=== PATIENT | female | born 1980 | race Caucasian/White ===

== ENCOUNTER → 2020-12-28 | Outpatient (CLI) | payer BC ==
[2020-12-28 10:49] LABS: Appearance,Urine Cloudy (Clear); Bacteria,Urine Rare /hpf; Bilirubin,Urine Negative (Negative); Blood,Urine Negative (Negative); Color,Urine Yellow; Glucose,Urine (UA) Negative (Negative); Ketones,Urine Negative (Negative); Leukocyte Esterase,Urine Small (Negative); Mucus,Urine Moderate /hpf; Nitrite,Urine Negative (Negative); Protein,Urine Trace (Negative); RBC,Urine 1 /hpf (0-5); Specific Gravity,Urine 1.024 (1.001-1.035); Squamous Epithelial Cell,Urine 9 /hpf (0-4); Urobilinogen,Urine <2.0 mg/dL (<2.0); WBC,Urine <1 /hpf (0-5)
[2020-12-28 12:14] LABS: Basophils # (A) 0.13 X 10*3/uL (0.00-0.10); Basophils % (A) 1.3 %; Eosinophils # (A) 0.24 X 10*3/uL (0.04-0.35); Eosinophils % (A) 2.5 %; HCT 45.2 % (37.2-46.3); HGB 14.5 g/dL (12.0-15.0); Lymphocytes # (A) 2.76 X 10*3/uL (0.90-5.00); Lymphocytes % (A) 28.6 %; MCH 29.4 pg (27.0-32.0); MCHC 32.1 g/dL (32.0-37.0); MCV 91.7 fL (80.0-97.0); Mean Platelet Volume 10.2 fL (9.5-12.2); Monocytes # (A) 0.91 X 10*3/uL (0.20-1.00); Monocytes % (A) 9.4 %; Neutrophils # (A) 5.59 X 10*3/uL (1.80-7.70); Neutrophils % (A) 57.9 %; Platelet Count 301 X 10*3/uL (140-440); RBC 4.93 X 10*6/uL (4.10-5.20); RDW 14.6 % (11.5-14.5); WBC 9.66 X 10*3/uL (4.50-10.00)
[2020-12-28 13:17] LABS: Chol/HDL Ratio 3.87 Ratio; HDL Cholesterol 50.1 mg/dL (40.00-60.00); LDL Cholesterol,Calculated 131.9 mg/dL (0.0-131.0); Triglycerides 59.8 mg/dL (0.00-149.00); VLDL Calculation 11.96 mg/dL (5.00-40.00)
[2020-12-28 13:18] LABS: African American GFR (CKD) 135.5 (60.0-200.0); Albumin 4.2 g/dL (3.8-4.9); Anion Gap 9.9 mmol/L (4.00-12.00); BUN/Creat Ratio 22.24 Ratio (12.00-20.00); Blood Urea Nitrogen 12.1 mg/dL (9.0-27.0); Calcium 9.1 mg/dL (8.7-10.3); Carbon Dioxide 23.2 mmol/L (21.6-31.8); Globulin 2.1 g/dL (1.6-3.3); Non-African American GFR(CKD) 116.9 (60.0-200.0); Potassium 4.7 mmol/L (3.5-5.5); Total Bilirubin 0.2 mg/dL (0.30-1.20); Total Protein 6.3 g/dL (6.2-8.2)
== END | disposition home or self-care (01) ==
LOC: LABWHC1 08:41
PROVIDERS: ATTEND Family Medicine
DX: R41.3 Other amnesia (principal)
CPT/HCPCS: 36415; 80053; 80061; 81001; 82306; 82607; 84443; 85025

== ENCOUNTER → 2021-03-07 | Outpatient (CLI) | payer BC | END | disposition home or self-care (01) | LOC: LABWHC1 10:43 | PROVIDERS: ATTEND Family Medicine | DX: E55.9 Vitamin D deficiency, unspecified (principal); E53.8 Deficiency of other specified B group vitamins | CPT/HCPCS: 36415; 82306; 82607 ==

== ENCOUNTER 2022-01-20 09:50 | Day surgery (SDC) | payer BC ==
[2022-01-16 10:51] VITALS: BMI 23.8
[~2022-01-20 09:50] MED LIST: LACTATED RINGERS 1,000 ML IV SCH; LIDOCAINE 1% (10MG/ML) FOR IV START INTRADERMA PRN
[2022-01-20 10:16] VITALS: RESP 16; TEMP 98.4
[2022-01-20] MEDS ORDERED: LIDOCAINE 2% INJ 20 MG/ML (2 ML VIAL) ONE (10:59)
[2022-01-20] MEDS ORDERED: PROPOFOL 10 MG/ML 20 ML VIAL IV ONE (10:59)
--- NOTE | 2022-01-20 11:19 | P.PCN ---
Date of Procedure: 01/20/22 Procedure(s) Performed: BRIEF HISTORY: Patient is a 41-year-old pleasant white female scheduled for an elective colonoscopy as a part of evaluation of progressive weight loss of 40 pounds in the last 1 year duration and change in bowel habits. PROCEDURE PERFORMED: Colonoscopy with biopsy. PREOPERATIVE DIAGNOSIS: Change in bowel habits/progressive weight loss. IV sedation per Anesthesia. PROCEDURE: After informed consent was obtained, the patient, was brought into the endoscopy unit. IV sedation was administered by Anesthesia under continuous monitoring. Digital rectal examination was normal. Initially the Olympus CF-160 flexible video colonoscope was then inserted in the rectum, gradually advanced into the cecum without any difficulty. Careful examination was performed as the scope was gradually being withdrawn. Ileocecal valve and the appendiceal orifice were visualized and appeared normal. Prep was excellent. Mucosa of the cecum had a 5 mm polyp that was removed by cold biopsy. Scattered right-sided diverticulosis seen. Rest of the, ascending colon, transverse colon, descending colon, sigmoid colon, and rectum appeared normal. Retroflexion was performed in the rectum and no lesions were seen. The patient tolerated the procedure well. IMPRESSION: 5 mm cecal polyp status post cold biopsy Scattered diverticulosis. RECOMMENDATIONS: Findings of this examination were discussed with the patient is a family. She was advised to follow with the biopsy results. If the biopsy was adenoma she can have a repeat colonoscopy in 5 years..
[2022-01-20 11:34] VITALS: BP 169/83; PULSE 74
== END 2022-01-20 12:03 | disposition home or self-care (01) ==
LOC: ORWHC2ENDO 09:50
PROVIDERS: ATTEND Internal Medicine Gastroenterology
DX: D12.0 Benign neoplasm of cecum (principal); K57.30 Diverticulosis of large intestine without perforation or abscess without bleeding; R63.4 Abnormal weight loss; J45.909 Unspecified asthma, uncomplicated; F17.200 Nicotine dependence, unspecified, uncomplicated; Z79.899 Other long term (current) drug therapy; Z88.5 Allergy status to narcotic agent
CPT/HCPCS: 81025; 88305; 45380; J2704; J2001

== ENCOUNTER → 2023-06-16 | Outpatient (CLI) | payer BC ==
[2023-06-16 11:39] LABS: Chol/HDL Ratio 2.57 Ratio; LDL Cholesterol,Calculated 109.8 mg/dL (0.0-131.0); VLDL Calculation 7.96 mg/dL (5.00-40.00)
== END | disposition home or self-care (01) ==
LOC: LABWHC1 07:18
PROVIDERS: ATTEND Internal Medicine
DX: E78.2 Mixed hyperlipidemia (principal)
CPT/HCPCS: 36415; 80061

== ENCOUNTER 2023-06-17 11:54 | Day surgery (SDC) | payer BC ==
[2023-06-15 14:40] VITALS: BMI 23.9
[~2023-06-17 11:54] MED LIST changes: +ALPRAZolam 0.25 MG TAB PO PRN; +ALPRAZolam 0.5 MG TAB PO PRN; -LACTATED RINGERS 1,000 ML IV SCH; -LIDOCAINE 1% (10MG/ML) FOR IV START INTRADERMA PRN; +NITROGLYCERIN SL TABS 0.4 MG TAB SUBLINGUAL PRN
[2023-06-17] MEDS: SODIUM CHLORIDE 0.9% 1,000 ML IV ONE (12:24)
[2023-06-17 12:40] LABS: Basophils # (A) 0.1 k/uL (0-0.2); Basophils % (A) 1 %; Eosinophils # (A) 0.3 k/uL (0-0.7); Eosinophils % (A) 3 %; HCT 43.5 % (34.0-46.0); Lymphocytes # (A) 3.2 k/uL (1.0-4.8); Lymphocytes % (A) 27 %; MCHC 32.2 g/dL (31.0-37.0); MCV 96.4 fL (80.0-100.0); Monocytes # (A) 0.8 k/uL (0-1.0); Monocytes % (A) 7 %; Neutrophils # (A) 7.3 k/uL (1.3-7.7); Neutrophils % (A) 61 %; Platelet Count 334 k/uL (150-450); RBC 4.51 m/uL (3.80-5.40)
[2023-06-17 12:49] LABS: African American GFR (CKD) >90 (>60 ml/min/1.73 sqM); Anion Gap 5 mmol/L; Blood Urea Nitrogen 12 mg/dL (7-17); Calcium 9.2 mg/dL (8.4-10.2); Carbon Dioxide 24 mmol/L (22-30); Chloride 108 mmol/L (98-107); Glucose 88 mg/dL (74-99); Non-African American GFR(CKD) >90 (>60 ml/min/1.73 sqM); Potassium 4.4 mmol/L (3.5-5.1); Sodium 137 mmol/L (137-145)
[2023-06-17] MEDS ORDERED: VERAPAMIL 2.5 MG/ML 2 ML AMP ONE (14:03)
[2023-06-17] MEDS ORDERED: fentaNYL (PF) 50 MCG/ML 2 ML AMP ONE (14:03)
[2023-06-17] MEDS: fentaNYL (PF) 50 MCG/1 ML VIAL IVP ONE (15:06)
[2023-06-17] MEDS: MIDAZOLAM 2 MG/2 ML VIAL IVP ONE (15:06)
[2023-06-17] MEDS: LIDOCAINE 1% INJ 10MG/ML (20 ML MDV) SQ ONE (15:10)
[2023-06-17] MEDS: VERAPAMIL SYRINGE (5 MG/10 ML) INTRAARTER ONE (15:11)
[2023-06-17] MEDS: HEPARIN SODIUM 1,000 UN/ML (10ML VL) IVP ONE (15:13)
[2023-06-17] MEDS: IOPAMIDOL-370 100ML BTL INJ ONE (15:20)
--- NOTE | 2023-06-17 15:28 | P.CARDCATH ---
Description of Procedure: PROCEDURES PERFORMED: Left heart catheterization, bilateral coronary angiography, ultrasound guided arterial access INDICATION: abnormal stress test CONSENT:I have discussed the risks, benefits and alternative therapies for the above-mentioned procedure and for both sedation/analgesia as well as necessary blood product administration, if indicated, as they pertain to this patient. The patient has indicated understanding and acceptance of the risks and procedures discussed. PROCEDURE: After the risks, benefits and alternatives of the above mentioned procedure explained in detail with the patient, informed consent was obtained. Patient was taken to the catheterization lab and prepped and draped in usual fashion. Ultrasound guidance was used to assess for arterial access. 1% lidocaine was used to anesthetize the right radial artery. A 6-[place] sheath was placed in the right radial artery using modified Seldinger technique and ultrasound guidance. Left coronary angiography was performed with a 5-[place] JL 3.5 catheter and right coronary angiography was performed with a 5-[place] FR5 catheter in various views. A 5-[place] FR5 catheter was inserted into the left ventricle and pressure measurements were obtained. The right radial sheath was removed and a TR band was placed with hemostasis achieved. The patient to lerated the procedure well. Patient was transported back to the post catheterization holding area in stable condition. Conscious Sedation: Patient was monitored under the direct supervision of myself for conscious sedation using Versed and fentanyl for a total duration of 13 minutes HEMODYNAMICS: Aorta: 121/75 LV: 128/8, LVEDP 14 SELECTIVE CORONARY ARTERIOGRAPHY: LEFT MAIN: The left main is a large caliber vessel which bifurcates into the LAD and circumflex. There is no significant stenosis. LEFT ANTERIOR DESCENDING CORONARY ARTERY: LAD is a large caliber vessel which wraps around to the apex. There is 30-40% mid LAD stenosis and otherwise mild luminal irregularities LEFT CIRCUMFLEX CORONARY ARTERY: Left circumflex is a moderate caliber vessel with mild 10% stenosis. OM1 is small caliber and has a proximal 40% OM1 stenosis. RIGHT CORONARY ARTERY: The right coronary artery is a large caliber vessel which gives off a PDA and PLV branch and is the dominant vessel. There are mild luminal irregularities. FINAL IMPRESSION: 1. CAD as described above including 30-40% mid LAD stenosis, 40% OM1 stenosis, 10% RCA stenosis 2. Normal left sided filling pressures PLAN: 1. Aggressive risk factor modification per most recent ACC/AHA guidelines. 2. Follow-up in the office in 1-2 weeks.
[2023-06-17] MEDS: ASPIRIN 325 MG TAB PO STA (17:18)
[2023-06-17] MEDS: SODIUM CHLORIDE 0.9% 1,000 ML IV SCH (17:18)
[2023-06-17] MEDS: SODIUM CHLORIDE 0.9% 1,000 ML in EMPTY BAG 1 BAG IV SCH (17:18)
[2023-06-17 17:55] VITALS: RESP 14; TEMP 98.1
[2023-06-17 19:13] VITALS: BP 116/67; PULSE 65
== END 2023-06-17 20:19 | disposition home or self-care (01) ==
LOC: CATHCVL 11:54 → 6NMEDSUR 15:57 → CATHCVL 20:19
PROVIDERS: ATTEND Internal Medicine
DX: I25.10 Atherosclerotic heart disease of native coronary artery without angina pectoris (principal); I35.0 Nonrheumatic aortic (valve) stenosis; J44.9 Chronic obstructive pulmonary disease, unspecified; E78.5 Hyperlipidemia, unspecified; F17.210 Nicotine dependence, cigarettes, uncomplicated; F17.290 Nicotine dependence, other tobacco product, uncomplicated; Z82.49 Family history of ischemic heart disease and other diseases of the circulatory system; Z79.899 Other long term (current) drug therapy
CPT/HCPCS: 93458; 76937; 80048; 85025; C1769; C1894; J2250; J2001; J1644; Q9967; J3010